=== PATIENT | female | born 1950 | race Two or more races ===

== ENCOUNTER 2020-09-06 14:25 | Outpatient (CLI) | payer MEDICARE, BC ==
--- NOTE | 2020-09-06 16:30 | Consultation ---
DATE OF CONSULTATION: 09/06/2020 GASTROENTEROLOGY CONSULTATION CHIEF COMPLAINT: Referral for screening colonoscopy, chronic GERD. PAST MEDICAL HISTORY: 1. Multiple myeloma. 2. Hypercholesterolemia. 3. Depression. PAST SURGICAL HISTORY: None. MEDICATIONS: Crestor and Lexapro. FAMILY HISTORY: Noncontributory. SOCIAL HISTORY: The patient denies any tobacco, alcohol, or drug abuse. ALLERGIES: Codeine. REVIEW OF SYSTEMS: A 10-point review of systems was performed and pertinent positives in HPI. PHYSICAL EXAMINATION: VITAL SIGNS: Temperature 97.1. Vital signs stable. Weight is 155. HEENT: Normocephalic, atraumatic. Sclerae anicteric. NECK: Supple. No evidence of obvious lymphadenopathy. CARDIOVASCULAR: Regular rate and rhythm. Plus S1, S2. LUNGS: Clear to auscultation bilaterally. ABDOMEN: Positive bowel sounds. Soft and nontender. No rebound. No guarding. No peritoneal sign. EXTREMITIES: No cyanosis, no clubbing, no edema. ASSESSMENT AND PLAN: This is a 70-year-old female who was referred for screening colonoscopy, also complained of chronic GERD, scheduled for endoscopy and colonoscopy. The patient was given instruction for colonoscopy. Risks and benefits of procedure were explained to her. She agreed. We are going to schedule her for next week. Craig Agarwal M.D. DR: CAMILA JOB#: [id number] CC:
[2020-09-07] MEDS ORDERED: CRESTOR10 M2 ORAL (08:04)
[2020-09-07] MEDS ORDERED: ASPIRIN EC81 MG ORAL (08:04)
[2020-09-07] MEDS ORDERED: LEXAPRO10 MG ORAL (08:04)
== END 2020-09-06 16:25 | disposition home or self-care (01) ==
LOC: PAN 14:25
DX: K21.9 Gastro-esophageal reflux disease without esophagitis (principal); E78.00 Pure hypercholesterolemia, unspecified; F32.9 Major depressive disorder, single episode, unspecified; Z88.6 Allergy status to analgesic agent
CPT/HCPCS: G0463